=== PATIENT | female | born 1965 | race Caucasian/White ===

== ENCOUNTER → 2017-06-28 | Outpatient (CLI) | payer OTHER ==
--- NOTE | 2017-06-28 16:52 | Diagnostic Imaging Report ---
INDICATION: Palpable lumps in both breasts. COMPARISON: Correlation is made with diagnostic mammogram from earlier the same day. FINDINGS: Sonographic interrogation of the areas of lumps in bilateral breasts was performed. Left breast does show a lymph node at the 2 o'clock location, 10 cm from the nipple, measuring approximately 8 mm x 5 mm x 8 mm. No other abnormality on the left is identified. On the right, there is a tiny hypoechoic circumscribed nodule just below the skin surface adjacent to the implant at the 10 o'clock location, 5 cm from the nipple, measuring 7 mm x 2 mm x 7 mm. This may represent tiny cluster of cysts. This has benign features. No other abnormalities are seen. IMPRESSION: BI-RADS 2. Benign appearing nodules, bilaterally. No suspicious abnormality is identified. Dictated by: Dictated on workstation # [id number]
--- NOTE | 2017-07-03 09:44 | Diagnostic Imaging Report ---
INDICATION: Bilateral breast lumps. COMPARISON: No prior studies are available for comparison. TECHNIQUE: Bilateral 2D and 3D diagnostic mammography was performed with CAD. FINDINGS: The patient has bilateral breast implants. No definite evidence of extracapsular rupture is seen. There are scattered fibroglandular densities bilaterally. There is a large benign-appearing calcification in the inner aspect of the left breast at anterior depth. No other mass or suspicious calcifications are seen. The axillae are unremarkable. IMPRESSION: No suspicious mammographic abnormality is identified. Even so, directed sonographic interrogation of the areas of palpable abnormality in both breasts is recommended for further evaluation. ACR BI-RADS Category 0: Incomplete. (Needs additional imaging evaluation). Result letter will be mailed to the patient. Note: At least 10% of breast cancer is not imaged by mammography. Dictated by: Dictated on workstation # [id number]
== END ==
LOC: RAD 13:18
PROVIDERS: ATTEND Nurse Practitioner Family
DX: N60.01 Solitary cyst of right breast (principal); N60.02 Solitary cyst of left breast; Z98.82 Breast implant status
CPT/HCPCS: 76642; 77066